=== PATIENT | male | born 1945 | race Caucasian/White ===

== ENCOUNTER 2020-10-21 15:14 | Outpatient (CLI) | payer MEDICARE, SELFPAY | END 2020-10-21 15:15 | disposition home or self-care (01) | LOC: ANHCOVIDVC 15:14 | PROVIDERS: PCP Internal Medicine | DX: Z23 Encounter for immunization (principal) | CPT/HCPCS: 0001A; 91300 ==

== ENCOUNTER 2020-11-11 15:05 | Outpatient (CLI) | payer MEDICARE, SELFPAY | END 2020-11-11 15:06 | disposition home or self-care (01) | LOC: ANHCOVIDVC 15:05 | PROVIDERS: PCP Internal Medicine | DX: Z23 Encounter for immunization (principal) | CPT/HCPCS: 0002A; 91300 ==

== ENCOUNTER 2020-12-21 07:16 | Outpatient (CLI) | payer MEDICARE, SELFPAY ==
--- NOTE | ~2020-12-21 | CT_ITS ---
EXAMINATION: CT brain wo/w con EXAM DATE: 12/21/2020 07:53 INDICATION: R51.9 - Headache, unspecified. TECHNIQUE: Spiral CT of the head was performed without contrast. Axial, coronal and sagittal images were reviewed. The dose-length product (DLP) for this examination was 1210.67 mGy-cm. The exposure was tailored according to patient size, and iterative reconstruction (ASIR) was used as additional do se reduction technique. There is no prior study for comparison. FINDINGS: There is no acute intraparenchymal hemorrhage. No evidence of intraparenchymal brain mass lesion. No evidence of acute infarction. Please note that initial head CT has limited sensitivity f or small or acute infarctions. There is mild periventricular and subcortical hypodensity, nonspecific but probably related to small vessel ischemic disease. There is moderate prominence of the sulci a nd ventricles related to cerebral atrophy. There is intracranial carotid arteriosclerosis. There a re no extra-axial collections. There is no mass effect or midline shift. The orbits are unremarkabl e. Soft tissue is unremarkable. The visualized sinuses and mastoid air cells are well aerated. Th ere are no areas of abnormal enhancement on the postcontrast images. IMPRESSION: 1. Chronic age related findings. Reviewed, dictated and finalized at location B.
[2020-12-21 07:42] LABS: Estimated Glomerular Filt Rate 59
== END 2020-12-21 07:17 | disposition home or self-care (01) ==
PROVIDERS: PCP Internal Medicine; Visit Provider Internal Medicine
DX: R51.9 Headache, unspecified (principal)
CPT/HCPCS: 70470; Q9967

== ENCOUNTER 2021-12-02 12:31 | Outpatient (RCR) | payer MEDICARE, SELFPAY ==
[2021-12-02] MEDS: FAMOTIDINE 20 MG TABLET PO (13:40)
[2021-12-02] MEDS: diphenhydrAMINE HCl CAP 25 MG CAPSULE PO (13:40)
[2021-12-02] MEDS: ACETAMINOPHEN 325 MG TABLET 650 MG PO (13:40)
[2021-12-02 13:49] VITALS: BP 143/88; PULSE 78; TEMP 37.4; O2SAT 97
[2021-12-02] MEDS: BEBTELOVIMAB 175 MG/2 ML VIAL IV PUSH (14:03)
[2021-12-02 14:49] VITALS: BP 136/80; PULSE 77; O2SAT 96
== END 2021-12-02 16:00 ==
LOC: AMCINF 12:31
PROVIDERS: PCP Internal Medicine; Referring Provider Internal Medicine; Visit Provider Internal Medicine Hematology & Oncology
DX: U07.1 COVID-19 (principal); I10 Essential (primary) hypertension
CPT/HCPCS: A9270; M0222; Q0222

== ENCOUNTER 2022-04-06 07:50 | Outpatient (CLI) | payer MEDICARE, SELFPAY ==
--- NOTE | ~2022-04-06 | NM_ITS ---
EXAMINATION: NM stress w perf spect multi DATE: 04/06/2022 09:49 INDICATION: Other forms of dyspnea TECHNIQUE: Rest images were obtained following intravenous administration of 11.7 mCi Tc99m tetrofosm in (Myoview). The patient performed an exercise activity. At peak exercise, 32.0 mCi Tc99m tetrofosmi n (Myoview) was administered intravenously, and stress images were obtained. Data was reconstructed i nto short axis and horizontal and vertical long axis SPECT images. Gated SPECT images were also obtai hussein. COMPARISON: None. FINDINGS: There is normal left ventricular perfusion without definite evidence of reversible or fixed perfusion abnormality to suggest ischemia or infarction. There is normal left ventricular chamber size, wall motion and ejection fraction. Left ventricular ejection fraction measures 52%. IMPRESSION: 1. Normal myocardial perfusion at rest and during stress. 2. Left ventricular ejection fraction measuring 52%. Reviewed, dictated and finalized at location A.
--- NOTE | 2022-04-06 08:25 | EST_ITS ---
Patient Info Name: Gerardo Hodges Age: 76 years : 1945 Gender: Male Ht: 68 in Wt: 222 lbs BSA: 2.23 m2 HR: 92 bpm BP: 110 / 75 mmHg Heart Rhythm: Sinus Rhythm Exam Date: 04/06/2022 8:59 AM Exam Location: [facility] Stress Patient Status: Outpatient Admit Date: 04/06/2022 Staff Ordering Physician: Mirza Stephen DO Attending Provider: Mirza Stephen DO Exercise Technologist: Patricia Rivera CT Exercise Physician: Luis Haskins DO Exam Type: CA stress ela w NM Study Info Indications R06.09 - Other forms of dyspnea A regadenoson stress test was performed. Summary 1. 1. Negative lexiscan stress test for ischemic ST changes by ECG criteria. 2. 2. Stable hemodynamics throughout the test. 3. 3. Nuclear scan to follow and will be reported separately. Please correlate with it. 4. 4. Patient informed of the above results. Protocol: Lexiscan Stress ECG Details Stage: REST Duration (min): 0 min : 52 sec HR (bpm): 91 SBP (mmHg): 110 DBP (mmHg): 75 Stage: REST Duration (min): 7 min : 19 sec HR (bpm): 86 SBP (mmHg): 110 DBP (mmHg): 75 Stage: STAGE 1 Duration (min): 1 min : 0 sec HR (bpm): 93 SBP (mmHg): 109 DBP (mmHg): 79 Stage: RECOVERY Duration (min): 1 min : 0 sec HR (bpm): 99 SBP (mmHg): 109 DBP (mmHg): 79 Stage: RECOVERY Duration (min): 2 min : 0 sec HR (bpm): 99 SBP (mmHg): 109 DBP (mmHg): 79 Stage: RECOVERY Duration (min): 2 min : 57 sec HR (bpm): 96 SBP (mmHg): 102 DBP (mmHg): 75 Rest HR: 86 bpm Peak HR: 102 bpm Rest Sys BP: 110 mmHg Peak Sys BP: 109 mmHg Max Pred HR: 146 bpm % Max Pred HR: 70 % Target HR: 124 bpm Max RPP: 11,118 bpm*mmHg Termination Reason: Completed protocol Cardiac Symptoms: Shortness of breath Total Time: 1 min : 0 sec Rest Jauregui BP: 75 mmHg Peak Jauregui BP: 79 mmHg Total Dose: 0.4 mg Resting ECG Sinus rhythm, PRWP, frequent PVC's. Stress ECG No ST changes. Arrhythmias None. Report Signatures
== END 2022-04-06 07:51 | disposition home or self-care (01) ==
PROVIDERS: PCP Internal Medicine; Visit Provider Internal Medicine
DX: Z01.818 Encounter for other preprocedural examination (principal); R06.09 Other forms of dyspnea
CPT/HCPCS: 78452; 93017; A9502; J2785

== ENCOUNTER 2022-04-27 11:14 | Outpatient (CLI) | payer MEDICARE, SELFPAY ==
--- NOTE | ~2022-04-27 | XR_ITS ---
EXAMINATION: XR chest 2V DATE: 04/27/2022 11:44 INDICATION: Shortness of breath TECHNIQUE: PA and lateral views of the chest were obtained. COMPARISON: Chest radiograph dated 01/22/2013 FINDINGS: Unchanged mild streaky bibasilar atelectasis/scarring. No new airspace opacities, pulmonary edema, pl eural effusion or pneumothorax. The cardiomediastinal silhouette is normal. Mild thoracic spondylosis . IMPRESSION: 1. Chronic mild bibasilar atelectasis/scarring. No acute cardiopulmonary disease. Reviewed, dictated and finalized at location A. IMPRESSION: 1. Chronic mild bibasilar atelectasis/scarring. No acute cardiopulmonary diseas e.
== END 2022-04-27 11:15 | disposition home or self-care (01) ==
PROVIDERS: PCP Internal Medicine; Visit Provider Physician Assistant
DX: R06.02 Shortness of breath (principal); M47.814 Spondylosis without myelopathy or radiculopathy, thoracic region
CPT/HCPCS: 71046